=== PATIENT | female | born 1995 | race Caucasian/White ===

== ENCOUNTER 2016-08-22 14:16 | Emergency (ER) | payer OTHER ==
[~2016-08-22] VITALS: Ht 175.3 cm; Wt 81.2 kg
[2016-08-22 14:27] VITALS: TEMP 36.4; Ht 175.3 cm; Wt 81.2 kg
[2016-08-22] MEDS ORDERED: KETOROLAC TROMETHAMINE 30 MG/ML VIAL IV STA (14:58)
[2016-08-22] MEDS ORDERED: SODIUM CHLORIDE 0.9% 1000ML 1,000 ML IV STA (14:58)
[2016-08-22] MEDS ORDERED: PROMETHAZINE HCL INJ 25 MG in SODIUM CHLORIDE 0.9% 50ML 50 ML IV STA (14:58)
[2016-08-22] MEDS ORDERED: MoRPHine SULFATE 10 MG/ML CARP/VIAL IV STA (14:58)
[2016-08-22] MEDS ORDERED: IBUP-103 PO (15:21)
[2016-08-22] MEDS ORDERED: OXYC-57 PO (15:21)
[2016-08-22] MEDS ORDERED: MoRPHine SULFATE 4 MG/ML 1 ML CARP\\VIAL ONE (15:25)
[2016-08-22] MEDS ORDERED: MoRPHine SULFATE 2 MG/ML CARP ONE (15:26)
--- NOTE | 2016-08-22 16:02 | DIAGNOSTIC IMAGING REPORT ---
HEAD CT NONCONTRAST CT DOSE: 537.48 mGy.cm HISTORY: Headache headache/worst headache of life TECHNIQUE: Multiaxial CT images of the head were performed without the use of intravenous contrast. Comparison: None. Findings: Moderate mucosal thickening right sphenoid sinus The calvarium and skull base are intact. The ventricles and sulci are within normal limits. There is no mass, hematoma, midline shift, or acute infarct. Impression: Moderate mucosal thickening right maxillary sinus. Otherwise negative study Electronically signed by: Mahin Benitez M.D. 08/22/2016 4:01 PM Dictated Date/Time: 08/22/2016 4:00 PM
[2016-08-22 16:15] VITALS: BP 93/58; PULSE 66; O2SAT 100
[2016-08-22] MEDS ORDERED: ONDA4TAB10 SL (16:40)
--- NOTE | 2016-08-22 16:41 | EMERGENCY ROOM VISIT NOTE ---
History First contact with patient: 14:36 Chief Complaint: HEADACHE Stated Complaint: SEVERE MIGRAINE History of Present Illness The patient is a 20 year old female who presents to the Emergency Room with complaints of headache which started last evening. The patient states that she has a history of migraine headaches. She normally can keep him under control she takes Motrin on a daily basis. She had to discontinue the Motrin several days prior to her having shoulder surgery on Friday. She did resume the Motrin on Friday but she started with a headache last evening. The patient states that the headache is different than her migraine headaches. She states it is all over her head where her migraines are normally in one area. She also states it "hurts to think" she denies any visual changes. She does admit to nausea and vomiting. She states this is the worst headache of her life. She denies any trauma to the head. Review of Systems 10 system review was performed and was negative unless stated otherwise history of present illness. Social History Smoking Status: Never Smoker Marital Status: single Housing Status: lives with family Occupation Status: student Current/Historical Medications Scheduled PRN Ibuprofen Tab (Advil), 400 MG PO Q6H PRN for Pain Oxycodone/Acetaminophen 5MG/325MG (Percocet 5MG/325MG), 1 TABLET PO Q4-6 HRS PRN for Pain Allergies Coded Allergies: No Known Allergies (Unverified , 08/22/16) Physical Exam Vital Signs Date Time Temp Pulse Resp B/P Pulse Ox O2 Delivery O2 Flow Rate FiO2 08/22/16 16:15 66 16 93/58 100 Room Air 08/22/16 14:27 36.4 80 20 106/73 100 Room Air Physical Exam VITAL SIGNS: were reviewed as above. GENERAL: 20-year-old white female appears uncomfortable secondary to headache and vomiting. SKIN: Warm dry and pink. HEAD: Normocephalic and atraumatic. OROPHARYNX: Is clear and moist TYMPANIC MEMBRANES: clear. NECK: Supple without lymphadenopathy or meningismus. LUNGS: Clear to auscultation without wheezes rales or rhonchi. HEART: Regular rate and rhythm without murmur. ABDOMEN: Soft and nontender to palpation without organomegaly or masses.. EXTREMITIES: Warm and well perfused. NEUROLOGICALLY: Awake alert and oriented without focal deficit. Cranial nerves 2-12 are intact. There is no pronator drift. Cerebellar testing is within normal limits. There is no nystagmus. There is no facial droop. Speech is clear. Vision is grossly normal. MUSCULOSKELETAL: Good muscle tone. No evidence of trauma. Strength is symmetric. Medical Decision & Procedures ER Provider Diagnostic Interpretation: HEAD CT NONCONTRAST CT DOSE: 537.48 mGy.cm HISTORY: Headache headache/worst headache of life TECHNIQUE: Multiaxial CT images of the head were performed without the use of intravenous contrast. Comparison: None. Findings: Moderate mucosal thickening right sphenoid sinus The calvarium and skull base are intact. The ventricles and sulci are within normal limits. There is no mass, hematoma, midline shift, or acute infarct. Impression: Moderate mucosal thickening right maxillary sinus. Otherwise negative study Electronically signed by: Mahin Benitez M.D. 08/22/2016 4:01 PM Dictated Date/Time: 08/22/2016 4:00 PM Medications Administered Medications (Trade) Dose Ordered Sig/Jerry Route Start Time Stop Time Status Last Admin Dose Admin Sodium Chloride 1,000 ml @ 999 mls/hr Q1H1M STAT IV 08/22/16 14:58 08/22/16 15:58 DC 08/22/16 15:39 999 MLS/HR Promethazine HCl/ Sodium Chloride (Phenergan Inj/ Nss 50ml) 51 ml @ 204 mls/hr NOW STAT IV 08/22/16 14:58 08/22/16 15:12 DC 08/22/16 15:38 204 MLS/HR Ketorolac Tromethamine (Toradol Inj) 30 mg NOW STAT IV 08/22/16 14:58 08/22/16 15:03 DC 08/22/16 15:38 30 MG Morphine Sulfate (MoRPHine SULFATE INJ) 4 mg STK-MED ONCE .ROUTE 08/22/16 15:25 08/22/16 15:27 DC 08/22/16 15:37 4 MG Morphine Sulfate (MoRPHine SULFATE INJ) 2 mg STK-MED ONCE .ROUTE 08/22/16 15:26 08/22/16 15:28 DC 08/22/16 15:38 2 MG ED Course The patient was evaluated. Urine was negative. IV access was obtained. The patient was given 1 L normal saline wide-open. She was given Toradol 30 mg IV, Phenergan 25 mg IV and morphine [address] of the head was ordered and interpreted by the radiologist as above without any acute findings. The patient was informed of the findings and reevaluated. She stated that she was feeling much better. She stated that the headache was almost completely resolved and she was not nauseated. The patient was discharged home in stable condition. Medical Decision Differential includes: Acute intracranial bleed, trauma, meningitis, encephalitis, increased intracranial pressure, mass or mass effect, facial or dental infection, temporal arteritis, CVA, TIA, acute hypertensive emergency, sinusitis, carbon monoxide exposure. Impression Primary Impression: Migraine Departure Information Dispostion Home / Self-Care Condition GOOD Prescriptions Ondasetron Odt (ZOFRAN ODT) 4 Mg Tab 4 MG SL Q6H for Nausea, #10 TAB Prov: Soco Benitez PA-C 08/22/16 Referrals Deb Soni,D.OAnthony (PCP) Forms HOME CARE DOCUMENTATION FORM, IMPORTANT VISIT INFORMATION Patient Instructions ED Headache Migraine, My [facility] Additional Instructions Go home and rest in a dark room for the remainder of the day. Do not drive for the remainder of the day. Ibuprofen every 6 hours for headache. Take Zofran as needed for nausea. If symptoms persist or worsen, return to ER. Problem Qualifiers Primary Impression: Migraine Migraine type: unspecified
== END 2016-08-22 16:52 | disposition home or self-care (01) ==
LOC: C.EDB 14:18
DX: G43.909 Migraine, unspecified, not intractable, without status migrainosus (principal)